=== PATIENT | female | born 1955 | race Caucasian/White ===

== ENCOUNTER 2017-05-11 09:11 | Outpatient (CLI) | payer BC | END 2017-05-11 09:12 | disposition home or self-care (01) | LOC: BICMAMMO 09:11 | PROVIDERS: ATTEND Obstetrics & Gynecology | DX: Z12.31 Encounter for screening mammogram for malignant neoplasm of breast (principal) | CPT/HCPCS: 77063; 77067 ==

== ENCOUNTER 2017-09-16 14:15 | Outpatient (CLI) | payer BC | END 2017-09-16 14:16 | disposition home or self-care (01) | LOC: BICCT 14:15 | PROVIDERS: ATTEND Allergy & Immunology | DX: J32.9 Chronic sinusitis, unspecified (principal); J32.1 Chronic frontal sinusitis ==

== ENCOUNTER 2018-05-12 09:07 | Outpatient (CLI) | payer BC ==
--- NOTE | 2018-05-12 11:14 | BD ---
DEXA BONE DENSITY STUDY: Date: 05/12/18 HISTORY: Postmenopausal. FINDINGS: Lumbar Spine: BMD (g/cm2) L1 1.028 T-Score: +0.3 L2 1.094 T-Score: +0.6 L3 1.112 T-Score: +0.3 L4 1.129 T-Score: +0.6 Total 1.096 T-Score: +0.4 Left Femoral Neck: 0.764 T-Score: -0.8 Total Femur: 0.862 T-Score: -0.7 IMPRESSION: Normal bone mineral density of the lumbar spine and left femoral neck. POS: TPC
--- NOTE | 2018-05-12 11:57 | MMO ---
Bilateral MAMMO Bilat Screen DDI+TAMIKA. CLINICAL HISTORY: Patient is 62 years old and is seen for screening. The patient has no family history of breast cancer. The patient has no personal history of cancer. VIEWS: The views performed were: bilateral craniocaudal with tomosynthesis and bilateral mediolateral oblique with tomosynthesis. FILMS COMPARED: The present examination has been compared to prior imaging studies performed at [facility] on 04/29/2014, 05/01/2015, 05/06/2016 and 05/11/2017, and at [facility] on 01/21/2011, 04/20/2012 and 04/26/2013. MAMMOGRAM FINDINGS: There are scattered fibroglandular densities. There are no suspicious masses, suspicious calcifications, or new areas of architectural distortion. IMPRESSION: THERE IS NO MAMMOGRAPHIC EVIDENCE OF MALIGNANCY. A ROUTINE FOLLOW-UP MAMMOGRAM IN 1 YEAR IS RECOMMENDED. THE RESULTS OF THIS EXAM WERE SENT TO THE PATIENT. ACR BI-RADS Category 1 - Negative MAMMOGRAPHY NOTE: 1. A negative mammogram report should not delay a biopsy if a dominant of clinically suspicious mass is present. 2. Approximately 10% to 15% of breast cancers are not detected by mammography. 3. Adenosis and dense breasts may obscure an underlying neoplasm.
== END 2018-05-12 09:08 | disposition home or self-care (01) ==
LOC: BICMAMMO 09:07
PROVIDERS: ATTEND Obstetrics & Gynecology
DX: Z12.31 Encounter for screening mammogram for malignant neoplasm of breast (principal); Z13.820 Encounter for screening for osteoporosis
CPT/HCPCS: 77063; 77067; 77080

== ENCOUNTER 2018-06-01 00:04 | Outpatient (CLI) | payer BC ==
[2018-06-01 09:59] LABS: Bilirubin Negative (Negative); Blood, Urine Negative (Negative); Clarity CLEAR (Clear); Glucose, Urine (Dipstick) Negative (Negative); Leukocyte Negative (Negative); Nitrite Negative (Negative); Protein, Urine (Dipstick) Negative (Neg-Trace); Specific Gravity, Urine 1.022 (1.002-1.036); Urobilinogen 0.2 mg/dL (0.2-1.0)
[2018-06-01 10:02] LABS: Bacteria/HPF None Seen HPF (None Seen); Hyaline Casts/LPF 4-6 HYALINE CAST LPF (0-3 Hyaline); Pathc Cast-AUWi Flag 0.67 (0-2.49); Squamous Epithelial 0-3 HPF (0-3); WBC/HPF 0-3 HPF (0-3)
[2018-06-01 10:03] LABS: INR-International Normal Ratio 0.9; Prothrombin Time 12.6 SEC (12.0-14.7)
[2018-06-01 10:09] LABS: Hemoglobin 12.1 g/dL (12.0-16.0); Mean Corpuscular HGB CONC 32.9 g/dL (32.0-36.0); Mean Corpuscular Hemoglobin 31.1 pg (27.0-31.0); Mean Corpuscular Volume 94.5 fL (78.0-98.0); Mean Platelet Volume 6.5 fL (7.4-10.4); Platelet Count 348 thou/uL (130-400); RBC Distribution Width 11.2 % (11.5-14.5); White Blood Cell (WBC) Count 6.4 thou/uL (4.8-10.8)
[2018-06-01 10:14] LABS: Anion Gap 9 mmol/L (10-20); BUN (Urea Nitrogen) 10 mg/dL (9.8-20.1); Calc. Creatinine Clearance 0 mL/min (70-130); Calcium 9.8 mg/dL (7.8-10.44); Carbon Dioxide 29 mmol/L (23-31); Chloride 103 mmol/L (98-107); Estimated GFR-MDRD 75; Glucose 82 mg/dL (80-115); Potassium 4.1 mmol/L (3.5-5.1); Sodium 137 mmol/L (136-145)
== END 2018-06-01 00:05 | disposition home or self-care (01) ==
LOC: LABBT 00:04
PROVIDERS: ATTEND Orthopaedic Surgery
DX: Z01.818 Encounter for other preprocedural examination (principal); M17.12 Unilateral primary osteoarthritis, left knee
CPT/HCPCS: 80048; 81001; 85027; 85610; 87081; 93005; 93010

== ENCOUNTER 2018-06-01 08:45 | Inpatient (IN) | payer BC ==
[2018-06-01 08:40] VITALS: BMI 25.0
[2018-06-12] MEDS ORDERED: Tranexamic Acid 1,000 MG/10 ML VIAL ONE ×2 (06:27→09:45)
[2018-06-12] MEDS ORDERED: Sodium Chloride 0.9% 100 ML ONE (06:27)
[2018-06-12] MEDS ORDERED: Lidocaine 1% (PF) 30 ML VIAL ONE (06:29)
[2018-06-12] MEDS ORDERED: Fentanyl 100 MCG/2 ML VIAL ONE ×2 (06:29→07:13)
[2018-06-12] MEDS ORDERED: Midazolam HCl 2 mg/2 ml Vial ONE (06:29)
[2018-06-12] MEDS ORDERED: Bupivacaine PF 0.5% 30 ML VIAL ONE (06:38)
[2018-06-12] MEDS ORDERED: Scopolamine 1.5 mg/72 hour Patch ONE (06:54)
[2018-06-12] MEDS ORDERED: Zolpidem Tartrate 5 MG TAB PO PRN ×2 (07:11→07:27)
[2018-06-12] MEDS ORDERED: HYDROcodone/Acetaminophen 10/325 mg Tablet PO PRN (07:11)
[2018-06-12] MEDS ORDERED: Ropivacaine HCl/PF 250 ML in Premix Bag 1 BAG NERVE BLCK SCH (07:11)
[2018-06-12] MEDS ORDERED: traMADol HCl 50 MG TAB PO PRN ×2 (07:11)
[2018-06-12] MEDS ORDERED: Fentanyl 100 MCG/2 ML VIAL IV PRN (07:11)
[2018-06-12] MEDS ORDERED: Promethazine HCl 25 MG/ML VIAL IM PRN ×2 (07:11→07:27)
[2018-06-12] MEDS ORDERED: Ondansetron PF 4 MG/2 ML Vial IVP PRN ×2 (07:11→07:27)
[2018-06-12] MEDS ORDERED: diphenhydrAMINE 25 MG CAP PO PRN (07:27)
[2018-06-12] MEDS ORDERED: Acetaminophen 325 MG TAB PO PRN (07:27)
[2018-06-12] MEDS ORDERED: Vancomycin HCl 1 GM in Premix Bag 1 BAG IVPB SCH (07:30)
[2018-06-12] MEDS ORDERED: Tranexamic Acid 1,000 MG in Sodium Chloride 0.9% 100 ML IVPB SCH (07:30)
[2018-06-12] MEDS ORDERED: Clindamycin/D5W 600 mg/50 ml Premix Bag ONE (07:43)
[2018-06-12] MEDS ORDERED: Non-Formulary Item 1 EACH (Multivitamin [Multi-Vitamin Daily] 1 TAB) PO SCH (09:00)
[2018-06-12] MEDS ORDERED: Meperidine HCl/PF 25 MG/ML VIAL ONE (09:27)
[2018-06-12] MEDS ORDERED: Promethazine HCl 25 MG/ML VIAL ONE (09:59)
[2018-06-12] MEDS: Fluticasone Propionate Nasal Spray 16 gm Bottle NASAL SCH (10:05)
[2018-06-12] MEDS: Aspirin 81 mg Enteric Coated Tablet PO SCH ×2 (10:05→22:40)
[2018-06-12] MEDS: Sodium Chloride 0.9% 1,000 ML IV SCH ×2 (10:05→15:23)
--- NOTE | 2018-06-12 10:24 | OP ---
DATE OF PROCEDURE: 06/12/2018 PREOPERATIVE DIAGNOSES: Left knee osteoarthritis with valgus deformity. POSTOPERATIVE DIAGNOSES: Left knee osteoarthritis with valgus deformity. PROCEDURE PERFORMED: Left total knee replacement using Jelena pin-less navigation. HEALTH SPECIALIST: Isauro Arceo PA-C. BLOOD LOSS: Minimal. COMPLICATIONS: None. ANESTHESIA: She did have a general anesthetic as well as preoperative block. IMPLANTS: Left knee size 4 left cruciate retaining femur. We used a size 3 primary tibial base plate. We used a 3 x 9 mm CS X3 tibial poly and then an asymmetric 29 x 9 X3 patella. DISPOSITION: She went to recovery in stable condition. INDICATIONS: This is a 62-year-old female who presents with left knee arthritis and valgus knee deformity. At this time, she has failed nonoperative treatment and wished to have her knee replaced. DESCRIPTION OF PROCEDURE: After all appropriate consent forms were explained and signed, she was taken to the operative room and at this time was given general anesthetic. Once the level of anesthesia was appropriate, tourniquet was placed on the left thigh and leg was then prepped and draped in standard surgical fashion. Preoperatively, the patient appeared to have near full extension, a lot of pseudolaxity to varus and valgus. At this time, the limb was exsanguinated and tourniquet was taken to 250 mmHg. Midline incision made with 10 blade down through skin. Bovie was used to coagulate any brisk venous bleeding. New blade was used to make a medial parapatellar arthrotomy. With the knee in full extension, we started to peel off her medial periosteal sleeve and patella spontaneously dislocated, which arose suspicion to maltracking and also with a known history of patella kimber. At this time, we removed excess fat pad and everted the patella. We did a lateral release just off the bone of the lateral facet of the patella as the fact that she dislocated spontaneously arose our suspicion that there would be some significant problems with patellar tracking. At this time, the knee was flexed up. We then navigated out the distal femur and cut our femur with the setting of cutting of 9 off the medial femoral condyle and 2 off the lateral femoral condyle. Once this was cut, we did not feel this was enough and so we took the guide down 2 mm and made another cut. Once this was done, we then set our sizing jig on the knee at 3 degrees on the left side. This was pinned in place putting even a little bit more external rotation so that our patella tracked well. At this time, we sized this to be a 4, was going to be a little bit big [id number], but even with 6 degrees of flexion on the navigation, the patient had no significant step-off on her femur and we did not want to take an anterior notch of the femoral cortex. The 4-in-1 cutting block was applied, pinned and cuts were made. At this time, loose osteophytes were removed with a rongeur and we then went ahead to preparing our tibia. PCL retractor was placed posteriorly and Hohmann was placed laterally. We then pinned our navigation on to the tibia. We then navigated our proximal tibia. We then cut with 4 degrees of posterior slope and there being 2 in 2 cut from the medial and lateral tibial plateaus. Once this had been cut, again we decided that this was not enough and so we took 2 more. At this time, we removed the medial and lateral meniscus tissue as well as cut off posterior osteophytes with the curved osteotome posteriorly from both sides. We then applied our tibia. The size 4 was too big and would overhang, therefore we went to a size 3 and using a long alignment anat, achieved our correct rotation pin in place. A 3 x 9 mm poly was trialed. This gave us excellent stability in flexion. Fantastic patellar tracking and was a little tight in full extension. Therefore, IT band had multiple slits made in it horizontally to release the IT band and allow us go in full extension. Once this was done, 2 towel clips were used and the patella was cut. We then trialed a 29 x 9 patella and this had excellent in our trochlear groove with nice tracking. We then removed our patella, flexed our knee up, drilled our lug knots and punched our tibia. All trial components were removed and the knee was thoroughly irrigated and dried. The PCL was recessed a little bit around the tibial insertion and the cement was mixed on the back table. We then applied our components, removing excess bone cement on the knee on full extension until the cement dried. At this time, we placed multiple interrupted #2 Vicryl sutures followed by running StrataFix and then we used a running 2-0 Stratafix and a 3-0 Stratafix to close remaining skin. Surgicel skin glue was used on top. Once this had dried, bulky sterile dressing was applied on to the left leg. Tourniquet was let down. Toes pinked up nicely. The patient was then awakened, taken to recovery room in stable condition. All counts were correct at the end of the case. She did receive preoperative IV antibiotics. Job ID: [id number]
[2018-06-12] MEDS: Rosuvastatin 5 MG TAB PO SCH (11:03)
[2018-06-12] MEDS: Ubidecarenone 50 MG CAP PO SCH (11:03)
[2018-06-12] MEDS: Ketorolac Tromethamine 30 MG/ML VIAL IVP SCH ×2 (12:22→18:12)
[2018-06-12] MEDS ORDERED: hydrALAZINE 20 MG/ML VIAL SLOW IVP PRN (14:54)
--- NOTE | 2018-06-12 15:22 | CON ---
DATE OF CONSULTATION: 06/12/2018 PRIMARY CARE PROVIDER: Dr. Epifanio Farfan. CHIEF COMPLAINT: Management of medical comorbidities. HISTORY OF PRESENT ILLNESS: Ms. Morgan is a pleasant 62-year-old lady, who was seen at [facility] for management of medical comorbidities on June 12, 2018. She underwent left total knee replacement today. She denies any chest pain or shortness of breath. She denies any fevers or chills. She denies any nausea or vomiting. She reports that pain is manageable. REVIEW OF SYSTEMS: All other systems reviewed and found to be negative. PAST MEDICAL HISTORY: Dyslipidemia, gastroesophageal reflux disease, spinal stenosis. PAST SURGICAL HISTORY: Hysterectomy, left maxillary sinus surgery, and surgery for deviated nasal septum. FAMILY HISTORY: No family history of coronary artery disease. SOCIAL HISTORY: No history of tobacco use, alcohol use, or recreational drug use. ALLERGIES: IBUPROFEN, NAPROXEN, PENICILLIN, STATINS, SULFAMETHOXAZOLE, AND TRIMETHOPRIM. CURRENT MEDICATIONS: 1. Tylenol Extra Strength p.r.n. 2. Calcium citrate/vitamin D3 two tablets daily. 3. Nexium 40 mg at bedtime. 4. Flonase 15.8 mL nasal spray daily. 5. Meloxicam 15 mg daily. 6. Multivitamins one tablet daily. 7. Crestor 5 mg daily. 8. Coenzyme Q10 100 mg daily. PHYSICAL EXAMINATION: GENERAL: On examination, Ms. Morgan is awake and alert, not in acute distress. VITAL SIGNS: Blood pressure is 166/76, pulse 76, respiratory rate 18, and oxygen saturations 98% on room air. She is afebrile. EYES: No scleral icterus, no conjunctival pallor. ENT: Moist mucosal membranes. No oropharyngeal erythema or exudates. NECK: Supple, nontender, trachea is midline. RESPIRATORY: Accessory muscles of breathing are not active. Chest wall movements are symmetric bilaterally. Lungs are clear to auscultation without wheeze, rhonchi, or crepitations. CARDIOVASCULAR: S1 and S2 are heard, regular. Peripheral pulses palpable. No carotid bruit, no pericardial rub. ABDOMEN: Soft, nontender, bowel sounds heard. NEUROLOGIC: Cranial nerves 2 through 12 are intact. MUSCULOSKELETAL: Status post left knee surgery. SKIN: No rashes or subcutaneous nodules. LYMPHATIC: No cervical lymphadenopathy. PSYCHIATRIC: Normal mood, normal affect, the patient is oriented to person, place, and time LABORATORY DATA: Ms. Morgan's labs and investigations were reviewed. On June 01, she had normal white count, normal hemoglobin, and normal platelet count. INR was 0.9. Chem-7 was unremarkable. Urinalysis showed 4 to 6 hyaline casts. ASSESSMENT AND PLAN: Ms. Morgan is a pleasant 62-year-old lady, who was seen at [facility] on June 12, 2018. Her problem list includes: 1. Dyslipidemia: We will continue the patient on statin, specifically Crestor, which is her home medication. 2. Gastroesophageal reflux disease: Stable, continue PPI. 3. Arthritis: Status post left total knee replacement. Deep venous thrombosis prophylaxis and pain management per Orthopedic Service. 4. We will order p.r.n. IV hydralazine for blood pressure spikes during this hospitalization. Many thanks for allowing me to participate in your patient's care. Please feel free to contact me with any questions or concerns. LEVEL OF RISK: Moderate. LEVEL OF COMPLEXITY: Moderate. Job ID: [id number]
[2018-06-12] MEDS: CEFAZOLIN 2 GM in Premix Bag 1 BAG IVPB SCH (15:37)
[2018-06-12] MEDS ORDERED: Ropivacaine 0.5% HCl/PF (150 MG/30 ML VIAL) ONE (16:20)
[2018-06-12] MEDS ORDERED: Ropivacaine 0.2% HCl/PF (40 MG/20 ML VIAL) ONE (16:20)
[2018-06-12] MEDS ORDERED: Dexamethasone 20 MG/5 ML VIAL ONE (16:43)
[2018-06-12] MEDS ORDERED: Ondansetron PF 4 MG/2 ML Vial ONE (16:43)
[2018-06-12] MEDS ORDERED: PROPOFOL 200 MG/20 ML VIAL ONE (16:43)
[2018-06-13] MEDS: CEFAZOLIN 2 GM in Premix Bag 1 BAG IVPB SCH (00:54)
[2018-06-13] MEDS: Ketorolac Tromethamine 30 MG/ML VIAL IVP SCH ×4 (00:54→18:30)
[2018-06-13 04:47] LABS: Hemoglobin 9.9 g/dL (12.0-16.0); Mean Corpuscular HGB CONC 33.6 g/dL (32.0-36.0); Mean Corpuscular Hemoglobin 31.8 pg (27.0-31.0); Mean Corpuscular Volume 94.5 fL (78.0-98.0); Mean Platelet Volume 6.3 fL (7.4-10.4); Platelet Count 261 thou/uL (130-400); RBC Distribution Width 11.2 % (11.5-14.5); White Blood Cell (WBC) Count 10.8 thou/uL (4.8-10.8)
[2018-06-13] MEDS: Sodium Chloride 0.9% 1,000 ML IV SCH ×2 (05:46→16:19)
[2018-06-13] MEDS: Ubidecarenone 50 MG CAP PO SCH (08:39)
[2018-06-13] MEDS: HYDROcodone/Acetaminophen 10/325 mg Tablet PO PRN ×4 (08:39→22:11)
[2018-06-13] MEDS: Aspirin 81 mg Enteric Coated Tablet PO SCH ×2 (08:40→22:08)
[2018-06-13] MEDS: Multivitamin W/ Minerals 1 TAB PO SCH (08:40)
[2018-06-13] MEDS: Ferrous Gluconate 324 MG TAB PO SCH ×2 (08:40→22:09)
[2018-06-13] MEDS: Senokot S 8.6-50 MG TAB PO SCH ×2 (08:41→22:10)
[2018-06-13] MEDS: Rosuvastatin 5 MG TAB PO SCH (08:42)
[2018-06-13] MEDS: Fluticasone Propionate Nasal Spray 16 gm Bottle NASAL SCH (13:27)
--- NOTE | 2018-06-13 19:08 | PDOC.PN ---
- Subjective Encounter Start Date: 06/13/18 Encounter Start Time: 19:06 Pt seen for followup re: gerd. No complaints today, feels better. - Objective MAR Reviewed: Yes Vital Signs & Weight: Vital Signs (12 hours) Temp Pulse Resp BP Pulse Ox 06/13/18 15:08 99.0 F 77 16 114/72 99 06/13/18 08:19 98.4 F 71 16 119/76 97 06/13/18 08:00 98 Weight Admit Weight 160 lb Weight 160 lb I&O: 06/12/18 06/13/18 06/14/18 06:59 06:59 06:59 Intake Total 2400 1000 Output Total 2750 Balance -350 1000 Result Diagrams: 06/13/18 04:30 Additional Labs: Labs reviewed by me Phys Exam - Physical Examination Constitutional: NAD HEENT: moist MMs Neck: supple Respiratory: clear to auscultation bilateral Cardiovascular: RRR Gastrointestinal: soft Neurological: moves all 4 limbs Psychiatric: normal affect Dx/Plan (1) GERD (gastroesophageal reflux disease) Code(s): K21.9 - GASTRO-ESOPHAGEAL REFLUX DISEASE WITHOUT ESOPHAGITIS Status: Chronic Comment: stable, continue Nexium (2) Dyslipidemia Code(s): E78.5 - HYPERLIPIDEMIA, UNSPECIFIED Status: Chronic Comment: stable , continue Crestor - Plan * . Review of Systems - Review of Systems Respiratory: negative: Cough, Shortness of Breath, SOB with Excertion, Pleuritic Pain, Wheezing Cardiovascular: negative: chest pain, palpitations, orthopnea, paroxysmal nocturnal dyspnea, edema, light headedness - Medications/Allergies Allergies/Adverse Reactions: Allergies Allergy/AdvReac Type Severity Reaction Status Date / Time ibuprofen [From Advil] Allergy Verified 06/01/18 08:45 naproxen [From Aleve] Allergy Verified 06/01/18 08:45 Penicillins Allergy oral Verified 06/01/18 08:45 ulcerations,digestive burning [id number] Reductase Allergy MUSCULAR, Verified 06/01/18 08:45 Inhibitor JOINT PAIN sulfamethoxazole Allergy LIP AND Verified 06/01/18 08:45 [From Bactrim] TONGUE SWELLING tree nut Allergy ANAPHYLAXSI Verified 06/01/18 08:45 S trimethoprim [From Bactrim] Allergy LIP AND Verified 06/01/18 08:45 TONGUE SWELLING Medications: Current Medications Acetaminophen (Tylenol) 650 mg PO Q4H PRN PRN Reason: Headache/Fever or Pain Hydrocodone Bitart/Acetaminophen ([place] 10/325) 1 tab PO Q4H PRN PRN Reason: Pain (1-3) Last Admin: 06/12/18 22:41 Dose: 1 tab Hydrocodone Bitart/Acetaminophen ([place] 10/325) 2 tab PO Q4H PRN PRN Reason: PAIN (4-6) Last Admin: 06/13/18 18:35 Dose: 2 tab Aspirin (Ecotrin) 81 mg PO BID [facility] Last Admin: 06/13/18 08:40 Dose: 81 mg Coenzyme Q10 (Coenzyme Q10) 100 mg PO DAILY [facility] Last Admin: 06/13/18 08:39 Dose: 100 mg Diphenhydramine HCl (Benadryl) 25 mg PO Q6H PRN PRN Reason: Itching Fentanyl (Sublimaze) 50 mcg IV Q1H PRN PRN Reason: BREAKTHROUGH PAIN Ferrous Gluconate (Fergon) 324 mg PO BID [facility] Last Admin: 06/13/18 08:40 Dose: 324 mg Fluticasone Propionate (Flonase Nasal [place]) 0 gm NASAL DAILY [facility] Last Admin: 06/13/18 13:27 Dose: Not Given Hydralazine HCl (Apresoline) 10 mg SLOW IVP Q6H PRN PRN Reason: SBP Greater Than 170 Ropivacaine 250 ml/ Device 250 mls @ 0 mls/hr NERVE BLCK INF [facility] Last Admin: 06/13/18 10:43 Dose: 250 mls Sodium Chloride (Normal Saline 0.9%) 1,000 mls @ 100 mls/hr IV .Q10H [facility] Last Admin: 06/13/18 16:19 Dose: Not Given Iron/Minerals/Multivitamins (Theragran M) 1 tab PO DAILY [facility] Last Admin: 06/13/18 08:40 Dose: 1 tab Ketorolac Tromethamine (Toradol) 30 mg IVP Q6HR [facility] Stop: 06/14/18 06:01 Last Admin: 06/13/18 18:30 Dose: Not Given Ondansetron HCl (Zofran) 4 mg IVP Q6H PRN PRN Reason: Nausea/Vomiting Pantoprazole Sodium (Protonix) 40 mg PO HS [facility] Last Admin: 06/12/18 22:41 Dose: 40 mg Promethazine HCl (Phenergan) 12.5 mg IM Q4H PRN PRN Reason: Nausea Promethazine HCl (Phenergan) 12.5 mg IM Q4H PRN PRN Reason: Nausea/Vomiting Rosuvastatin Calcium (Crestor) 5 mg PO QAM [facility] Last Admin: 06/13/18 08:42 Dose: 5 mg Senna/Docusate Sodium (Senokot S) 2 tab PO BID [facility] Last Admin: 06/13/18 08:41 Dose: 2 tab Sodium Chloride (Flush - Normal Saline) 10 ml IVF PRN PRN PRN Reason: Saline Flush Last Admin: 06/13/18 05:48 Dose: 10 ml Tramadol HCl (Ultram) 50 mg PO Q6H PRN PRN Reason: Mild Pain (1-3) Tramadol HCl (Ultram) 100 mg PO Q6H PRN PRN Reason: Moderate Pain 4-6 Last Admin: 06/13/18 01:03 Dose: 100 mg Zolpidem Tartrate (Ambien) 5 mg PO HSPRN PRN PRN Reason: Insomnia
[2018-06-14] MEDS: Sodium Chloride 0.9% 1,000 ML IV SCH ×2 (00:59→08:48)
[2018-06-14] MEDS: Ketorolac Tromethamine 30 MG/ML VIAL IVP SCH ×2 (01:00→06:24)
[2018-06-14 05:27] LABS: Hemoglobin 8.8 g/dL (12.0-16.0); Mean Corpuscular HGB CONC 33.3 g/dL (32.0-36.0); Mean Corpuscular Volume 96.3 fL (78.0-98.0); Mean Platelet Volume 6.6 fL (7.4-10.4); Platelet Count 236 thou/uL (130-400); RBC Distribution Width 11.1 % (11.5-14.5); Red Blood Cell (RBC) Count 2.75 mill/uL (4.20-5.40); White Blood Cell (WBC) Count 11.4 thou/uL (4.8-10.8)
[2018-06-14] MEDS: HYDROcodone/Acetaminophen 10/325 mg Tablet PO PRN (09:31)
[2018-06-14] MEDS: Senokot S 8.6-50 MG TAB PO SCH (09:32)
[2018-06-14] MEDS: Rosuvastatin 5 MG TAB PO SCH (09:32)
[2018-06-14] MEDS: Ferrous Gluconate 324 MG TAB PO SCH (09:32)
[2018-06-14] MEDS: Ubidecarenone 50 MG CAP PO SCH (09:32)
[2018-06-14] MEDS: Multivitamin W/ Minerals 1 TAB PO SCH (09:33)
[2018-06-14] MEDS: Aspirin 81 mg Enteric Coated Tablet PO SCH (09:33)
[2018-06-14 12:08] VITALS: BP 127/80; TEMP 98.5
== END 2018-06-14 14:12 | disposition home or self-care (01) | DRG 470 ==
LOC: SURG A 06-12 05:33 → SJJU 06-12 10:13
PROVIDERS: ADMIT Orthopaedic Surgery; ATTEND Orthopaedic Surgery
PROC: 0SRD0J9 Replacement of Left Knee Joint with Synthetic Substitute, Cemented, Open Approach (ICD-10-PCS; principal; 2018-06-12)
DX: M17.12 Unilateral primary osteoarthritis, left knee (principal); E78.5 Hyperlipidemia, unspecified; K21.9 Gastro-esophageal reflux disease without esophagitis; M21.062 Valgus deformity, not elsewhere classified, left knee; Z90.710 Acquired absence of both cervix and uterus; Z88.0 Allergy status to penicillin; Z88.2 Allergy status to sulfonamides; Z88.6 Allergy status to analgesic agent; Z91.018 Allergy to other foods; Z79.899 Other long term (current) drug therapy
CPT/HCPCS: 36415; 85027; 86850; 86900; 86901; C1713; C1776; J0690; J1885; J2001; J2175; J2250; J2550; J2795; J3010; J3370; J3490; S0020

== ENCOUNTER 2018-06-21 15:53 | Outpatient (CLI) | payer BC ==
--- NOTE | 2018-06-21 16:18 | ULT ---
Venous duplex sonogram left lower extremity HISTORY: Left leg pain and edema. FINDINGS: The left common femoral vein and greater saphenous junction were evaluated along with the f emoral, deep femoral, popliteal, and posterior tibial veins. There is good color and spectral Doppler flow, compression, and augmentation. IMPRESSION: No sonographic evidence of DVT within the left lower extremity.
== END 2018-06-21 15:54 | disposition home or self-care (01) ==
LOC: ULT 15:53
PROVIDERS: ATTEND Orthopaedic Surgery
DX: M79.662 Pain in left lower leg (principal); Z96.652 Presence of left artificial knee joint

== ENCOUNTER 2019-06-15 13:03 | Outpatient (CLI) | payer BC ==
--- NOTE | 2019-06-15 13:42 | MMO ---
Bilateral MAMMO Bilat Screen DDI+TAMIKA. CLINICAL HISTORY: Patient is 63 years old and is seen for screening. The patient has no family history of breast cancer. The patient has no personal history of cancer. VIEWS: The views performed were: bilateral craniocaudal with tomosynthesis and bilateral mediolateral oblique with tomosynthesis. FILMS COMPARED: The present examination has been compared to prior imaging studies performed at [facility] on 05/06/2016, 05/11/2017 and 05/12/2018. This study has been interpreted with the assistance of computer-aided detection. MAMMOGRAM FINDINGS: There are scattered fibroglandular densities. There are no suspicious masses, suspicious calcifications, or new areas of architectural distortion. IMPRESSION: THERE IS NO MAMMOGRAPHIC EVIDENCE OF MALIGNANCY. A ROUTINE FOLLOW-UP MAMMOGRAM IN 1 YEAR IS RECOMMENDED. THE RESULTS OF THIS EXAM WERE SENT TO THE PATIENT. ACR BI-RADS Category 1 - Negative MAMMOGRAPHY NOTE: 1. A negative mammogram report should not delay a biopsy if a dominant of clinically suspicious mass is present. 2. Approximately 10% to 15% of breast cancers are not detected by mammography. 3. Adenosis and dense breasts may obscure an underlying neoplasm. Reported by: CEDRIC GLASER MD Electonically Signed: [id number]
== END 2019-06-15 13:04 | disposition home or self-care (01) ==
LOC: BICMAMMO 13:03
PROVIDERS: ATTEND Obstetrics & Gynecology
DX: Z12.31 Encounter for screening mammogram for malignant neoplasm of breast (principal)
CPT/HCPCS: 77063; 77067

== ENCOUNTER 2020-01-05 08:05 | Emergency (ER) | payer BC ==
[2020-01-05] MEDS ORDERED: Acetaminophen 500 MG TAB ONE (08:34)
[2020-01-05 08:41] LABS: #Eosinphils 0.1 thou/uL (0.0-0.7); #Lymphocytes 1.4 thou/uL (1.20-3.40); #Monocytes 1.4 thou/uL (0.11-0.59); #Neutrophils 15.6 thou/uL (1.40-6.50); %Basophils 0.2 % (0.0-1.0); %Eosinophils 0.6 % (0.0-10.0); %Lymphocytes 7.7 % (21.0-51.0); %Monocytes 7.3 % (0.0-10.0); %Neutrophils 84.3 % (42.0-75.0); Hemoglobin 12.5 g/dL (12.0-16.0); Mean Corpuscular HGB CONC 35.4 g/dL (32.0-36.0); Mean Corpuscular Hemoglobin 32.9 pg (27.0-31.0); Mean Corpuscular Volume 92.9 fL (78.0-98.0); Mean Platelet Volume 5.7 fL (7.4-10.4); Platelet Count 425 thou/uL (130-400); RBC Distribution Width 10.9 % (11.5-14.5); Red Blood Cell (RBC) Count 3.79 mill/uL (4.20-5.40); White Blood Cell (WBC) Count 18.6 thou/uL (4.8-10.8)
[2020-01-05 09:01] LABS: ALT (SGPT) 24 U/L (8-55); AST (SGOT) 23 U/L (5-34); Albumin 4.6 g/dL (3.4-4.8); Alkaline Phosphatase 73 U/L (40-110); Anion Gap 13 mmol/L (10-20); BUN (Urea Nitrogen) 14 mg/dL (9.8-20.1); Bilirubin, Total 1.4 mg/dL (0.2-1.2); Calc. Creatinine Clearance 0 mL/min (70-130); Calcium 9.3 mg/dL (7.8-10.44); Carbon Dioxide 24 mmol/L (23-31); Chloride 92 mmol/L (98-107); Estimated GFR-MDRD 68; Globulin 3.4 g/dL (2.4-3.5); Glucose 109 mg/dL (80-115); Lipase 70 U/L (8-78); Potassium 4.1 mmol/L (3.5-5.1); Sodium 125 mmol/L (136-145)
--- NOTE | 2020-01-05 09:37 | CT ---
CT abdomen and pelvis with IV contrast HISTORY: Abdominal pain. Nausea and constipation. FINDINGS: The lung bases are clear. A tiny dystrophic calcification associated with the far anterior margin of the superior pole left kidney. No urinary tract calcifications are apparent. Liver and spleen have a normal appearance No free air or free fluid. Large amount of stool is present throughout the colon. Scattered diverticula arise from the colon. Ci rcumferential wall thickening involves the decompressed sigmoid colon with subtle stranding in the adjacent fat. Appendix is not inflamed. Urinary bladder is unremarkable. IMPRESSION : Severe constipation. Transition of caliber and subtle inflammatory appearance of the sigmoid colon ma y represent mild acute versus chronic diverticulitis/inflammation. Please correlate with clinical findings.
[2020-01-05 09:53] LABS: Bilirubin Negative (Negative); Blood, Urine Negative (Negative); Clarity Clear (Clear); Glucose, Urine (Dipstick) Normal (Negative); Ketone, Urine Negative (Negative); Leukocyte Negative Leu/uL (Negative); Nitrite Negative (Negative); Protein, Urine (Dipstick) Negative (Neg-Trace); Specific Gravity, Urine 1.016 (1.002-1.036); Urobilinogen Normal mg/dL (Less than 2); pH, Urine 7.5 (5.0-9.0)
[2020-01-05] MEDS ORDERED: Metoclopramide HCl 10 MG/2 ML VIAL ONE (10:12)
[2020-01-05] MEDS ORDERED: Iopamidol-370 76% 500 ML 1 ML ONE (15:30)
== END 2020-01-05 11:09 | disposition home or self-care (01) ==
LOC: ERS 08:05
DX: K57.30 Diverticulosis of large intestine without perforation or abscess without bleeding (principal); K59.00 Constipation, unspecified; I10 Essential (primary) hypertension; E78.00 Pure hypercholesterolemia, unspecified; K21.9 Gastro-esophageal reflux disease without esophagitis; M19.90 Unspecified osteoarthritis, unspecified site; Z79.899 Other long term (current) drug therapy
CPT/HCPCS: 74177; 80053; 81003; 83690; 85025; J2765

== ENCOUNTER 2020-01-05 19:59 | Inpatient (IN) | payer BC ==
[2020-01-05] MEDS ORDERED: Metoclopramide HCl 10 MG/2 ML VIAL ONE (20:16)
[2020-01-05 20:44] LABS: #Eosinphils 0.1 thou/uL (0.0-0.7); #Lymphocytes 1.8 thou/uL (1.20-3.40); #Monocytes 1.5 thou/uL (0.11-0.59); #Neutrophils 16.2 thou/uL (1.40-6.50); %Basophils 0.2 % (0.0-1.0); %Eosinophils 0.6 % (0.0-10.0); %Lymphocytes 9.2 % (21.0-51.0); %Monocytes 7.4 % (0.0-10.0); %Neutrophils 82.6 % (42.0-75.0); Hemoglobin 11.9 g/dL (12.0-16.0); Mean Corpuscular HGB CONC 34.7 g/dL (32.0-36.0); Mean Corpuscular Hemoglobin 32.3 pg (27.0-31.0); Mean Platelet Volume 5.9 fL (7.4-10.4); Platelet Count 423 thou/uL (130-400); Red Blood Cell (RBC) Count 3.68 mill/uL (4.20-5.40); White Blood Cell (WBC) Count 19.6 thou/uL (4.8-10.8)
[2020-01-05] MEDS ORDERED: Lorazepam 1 MG TAB ONE (21:04)
[2020-01-05 21:18] LABS: Bilirubin Negative (Negative); Blood, Urine Negative (Negative); Clarity Clear (Clear); Glucose, Urine (Dipstick) Normal (Negative); Ketone, Urine Negative (Negative); Leukocyte Negative Leu/uL (Negative); Nitrite Negative (Negative); Protein, Urine (Dipstick) Negative (Neg-Trace); Specific Gravity, Urine 1.015 (1.002-1.036); Urobilinogen Normal mg/dL (Less than 2); pH, Urine 7.5 (5.0-9.0)
[2020-01-05 22:00] LABS: ALT (SGPT) 23 U/L (8-55); AST (SGOT) 39 U/L (5-34); Albumin 4.7 g/dL (3.4-4.8); Alkaline Phosphatase 78 U/L (40-110); Anion Gap 17 mmol/L (10-20); BUN (Urea Nitrogen) 9 mg/dL (9.8-20.1); Bilirubin, Total 1.5 mg/dL (0.2-1.2); Calc. Creatinine Clearance 0 mL/min (70-130); Calcium 8.9 mg/dL (7.8-10.44); Carbon Dioxide 22 mmol/L (23-31); Chloride 89 mmol/L (98-107); Estimated GFR-MDRD 73; Globulin 3.8 g/dL (2.4-3.5); Glucose 113 mg/dL (80-115); Lipase 47 U/L (8-78); Protein, Total 8.5 g/dL (6.0-8.3); Sodium 123 mmol/L (136-145)
[2020-01-05] MEDS ORDERED: Ondansetron ODT 4 MG TAB SL PRN (23:45)
[2020-01-05] MEDS ORDERED: Ondansetron PF 4 MG/2 ML Vial IVP PRN (23:45)
[2020-01-05] MEDS ORDERED: HYDROcodone/Acetaminophen 5/325 mg Tablet PO PRN ×2 (23:45)
[2020-01-05] MEDS ORDERED: Acetaminophen 325 MG TAB PO PRN (23:45)
[2020-01-05] MEDS ORDERED: Sodium Chloride 0.9% 1,000 ML IV SCH (23:45)
[2020-01-06 00:07] VITALS: BMI 27.6
[2020-01-06] MEDS ORDERED: Ondansetron PF 4 MG/2 ML Vial IVP PRN (01:56)
[2020-01-06] MEDS ORDERED: Ondansetron ODT 4 MG TAB PO PRN (01:56)
--- NOTE | 2020-01-06 02:10 | PDOC.HHP ---
Hospitalist HPI - History of Present Illness abdominal pain History of Present Illness: Case of an 64y/o female with pmhx of gerd and htn who comes to hospital due to abdominal pain, nause and vomiting. Patient states she was on her usual state of health until like 5 days ago when she started with the pain nausea and vomiting, she states her last bowel movement was 7 days ago. she states abd pain nause and vomiting has been progressively getting worse, she has been unable to tolerate anything po for the last 4 days this is her third visit to this emergency department for the same complaint. She had a CT scan this morning which was consistent with severe constipation and inflammation / diverticulitis, she was discharge with po abx and stool softners. She has tried suppositories milk of magnesia and manual disimpaction at home without success. she denies fever chills or malaise does Hospitalist ROS - Review of Systems All other systems reviewed; all pertinent +/- noted in HPI/Subj - Medication Medications: Active Medications Generic Name Dose Route Start Last Admin Trade Name Freq PRN Reason Stop Dose Admin Sodium Chloride 1,000 mls @ 110 mls/hr 01/05/20 23:45 01/06/20 00:23 Normal Saline 0.9% IV 01/06/20 09:16 1,000 mls .[id number] AMADOU Administration Hospitalist History - Past Surgical History Past Surgical History: reports: Hysterectomy, Total Knee Replacement, Tonsillectomy - Family History Family History: reports: hypertension - Social History Smoking Status: Never smoker Alcohol: reports: None Drugs: reports: none Living Situation: With Family - Exam General Appearance: NAD, awake alert Eye: PERRL, anicteric sclera ENT: normocephalic atraumatic, no oropharyngeal lesions, dry oral mucosa Neck: supple, symmetric, no JVD, no thyromegaly Heart: RRR, no murmur, no gallops, no rubs Respiratory: CTAB, no wheezes, no rales, no ronchi Gastrointestinal: soft, non-distended, normal bowel sounds, no palpable masses, tender to palpation Extremities: no cyanosis, no clubbing, no edema Skin: normal turgor, no lesions, no rashes Neurological: cranial nerve grossly intact, normal sensation to touch, no weakness Musculoskeletal: normal tone, normal strength, no muscle wasting Psychiatric: normal affect, normal behavior, A&O x 3 Hospitalist Results - Labs Result Diagrams: 01/05/20 20:20 01/05/20 20:20 Lab results: WBC 19.6 thou/uL (4.8-10.8) H 01/05/20 20:20 Hgb 11.9 g/dL (12.0-16.0) L 01/05/20 20:20 Hct 34.2 % (36.0-47.0) L 01/05/20 20:20 MCV 93.0 fL (78.0-98.0) 01/05/20 20:20 Plt Count 423 thou/uL (130-400) H 01/05/20 20:20 Neutrophils % 82.6 % (42.0-75.0) H 01/05/20 20:20 Sodium 123 mmol/L (136-145) L 01/05/20 20:20 Potassium 5.0 mmol/L (3.5-5.1) 01/05/20 20:20 Chloride 89 mmol/L (98-107) L 01/05/20 20:20 Carbon Dioxide 22 mmol/L (23-31) L 01/05/20 20:20 BUN 9 mg/dL (9.8-20.1) L 01/05/20 20:20 Creatinine 0.79 mg/dL (0.6-1.1) 01/05/20 20:20 Glucose 113 mg/dL (80-115) 01/05/20 20:20 Lactic Acid 0.7 mmol/L (0.5-2.2) 01/05/20 21:06 Calcium 8.9 mg/dL (7.8-10.44) 01/05/20 20:20 Total Bilirubin 1.5 mg/dL (0.2-1.2) H 01/05/20 20:20 AST 39 U/L (5-34) H 01/05/20 20:20 ALT 23 U/L (8-55) 01/05/20 20:20 Alkaline Phosphatase 78 U/L (40-110) 01/05/20 20:20 Serum Total Protein 8.5 g/dL (6.0-8.3) H 01/05/20 20:20 Albumin 4.7 g/dL (3.4-4.8) 01/05/20 20:20 Lipase 47 U/L (8-78) 01/05/20 20:20 Urine Ketones Negative mg/dL (Negative) 01/05/20 20:50 Urine Blood Negative (Negative) 01/05/20 20:50 Urine Nitrite Negative (Negative) 01/05/20 20:50 Ur Leukocyte Esterase Negative Cyndie/uL (Negative) 01/05/20 20:50 Hospitalist H&P A/P - Problem (1) Diverticulitis Code(s): K57.92 - DVTRCLI OF INTEST, PART UNSP, W/O PERF OR ABSCESS W/O BLEED Status: Acute (2) Intractable abdominal pain Code(s): R10.9 - UNSPECIFIED ABDOMINAL PAIN Status: Acute (3) Nausea & vomiting Code(s): R11.2 - NAUSEA WITH VOMITING, UNSPECIFIED Status: Acute (4) Hyponatremia Code(s): E87.1 - HYPO-OSMOLALITY AND HYPONATREMIA Status: Acute (5) Dyslipidemia Code(s): E78.5 - HYPERLIPIDEMIA, UNSPECIFIED Status: Chronic (6) GERD (gastroesophageal reflux disease) Code(s): K21.9 - GASTRO-ESOPHAGEAL REFLUX DISEASE WITHOUT ESOPHAGITIS Status: Chronic (7) Constipation Code(s): K59.00 - CONSTIPATION, UNSPECIFIED Status: Acute - Plan Plan: 64y/o female with the stated pmhx who presents w abdominal pain n&V abdominal pain - diverticulitis vs severe consitipation - pain management diverticulitis - ct suspecious for inflmmation vs diverticululitis - lekukocytosis 19k - started on cippro + flagyl - f/u blood cultures severe consitpation - ivfs - miralax - fleet enema - reglan n+V pnr symptomatic tx hyponatremia - likely hypoosmolar hypovolemic due to poor oral intak - will hydrate w NS
[2020-01-06] MEDS ORDERED: Sodium Chloride 0.9% 1,000 ML IV SCH (02:30)
[2020-01-06] MEDS ORDERED: Fleet Enema 133 ML BOT FS SCH (05:15)
[2020-01-06] MEDS ORDERED: Metoclopramide HCl 10 MG/2 ML VIAL IVP PRN (05:46)
[2020-01-06] MEDS: metroNIDAZOLE 500 MG in Premix Bag 1 BAG IVPB SCH ×3 (05:54→21:46)
[2020-01-06 07:08] LABS: SARS-CoV-2 MS2 Positive; SARS-CoV-2 N Gene Negative; SARS-CoV-2 S Gene Negative; SARS-CoV-2 by NAA Not Detected (NotDetected); SARS-CoV-2 orf1ab Negative
[2020-01-06 07:51] LABS: Anion Gap 12 mmol/L (10-20); BUN (Urea Nitrogen) 5 mg/dL (9.8-20.1); Calc. Creatinine Clearance 107 mL/min (70-130); Calcium 8.3 mg/dL (7.8-10.44); Carbon Dioxide 23 mmol/L (23-31); Chloride 99 mmol/L (98-107); Estimated GFR-MDRD 89; Glucose 126 mg/dL (80-115); Potassium 3.8 mmol/L (3.5-5.1); Sodium 130 mmol/L (136-145)
[2020-01-06 08:04] LABS: ALT (SGPT) 15 U/L (8-55); AST (SGOT) 17 U/L (5-34); Albumin 3.7 g/dL (3.4-4.8); Alkaline Phosphatase 56 U/L (40-110); Anion Gap 12 mmol/L (10-20); BUN (Urea Nitrogen) 5 mg/dL (9.8-20.1); Bilirubin, Total 1.2 mg/dL (0.2-1.2); Calc. Creatinine Clearance 105 mL/min (70-130); Calcium 8.1 mg/dL (7.8-10.44); Carbon Dioxide 22 mmol/L (23-31); Chloride 100 mmol/L (98-107); Estimated GFR-MDRD 87; Globulin 2.6 g/dL (2.4-3.5); Glucose 131 mg/dL (80-115); Magnesium 2.3 mg/dL (1.6-2.6); Potassium 3.8 mmol/L (3.5-5.1); Protein, Total 6.3 g/dL (6.0-8.3); Sodium 130 mmol/L (136-145)
[2020-01-06 08:18] LABS: Band 2 % (5-11); Eosinophils 2 % (0-10); Hemoglobin 10.1 g/dL (12.0-16.0); Lymphocytes 13 % (21-51); MDiff Complete? YES; Mean Corpuscular HGB CONC 34.4 g/dL (32.0-36.0); Mean Corpuscular Hemoglobin 32.3 pg (27.0-31.0); Mean Corpuscular Volume 93.9 fL (78.0-98.0); Mean Platelet Volume 5.6 fL (7.4-10.4); Monocytes 2 % (0-10); Neutrophil 81 % (42-75); Platelet Count 348 thou/uL (130-400); Red Blood Cell (RBC) Count 3.14 mill/uL (4.20-5.40); White Blood Cell (WBC) Count 12.6 thou/uL (4.8-10.8)
[2020-01-06] MEDS: Enoxaparin Sodium 40 MG/0.4 ML SYRINGE SC SCH (08:51)
[2020-01-06] MEDS ORDERED: Polyethylene Glycol 3350 17 GM Packet PO SCH (09:00)
[2020-01-06] MEDS ORDERED: Famotidine 20 MG TAB PO SCH (09:00)
--- NOTE | 2020-01-06 09:18 | PDOC.HOSPP ---
- Subjective Encounter Date: 01/06/20 (fu abdominal pain) Encounter Time: 09:17 Subjective: Pt reports feeling better this morning - less cramping, a few bm's. no current nausea. she states her a week ago from a heart attack. She's been having significant problems with nausea, vomiting, constipation since then. She tried multiple remedies at home without relief. She states the enema here helped. - Objective Vital Signs & Weight: Vital Signs (12 hours) Temp Pulse Resp BP Pulse Ox 01/06/20 07:23 98.3 F 75 20 134/88 93 L 01/06/20 03:27 98.2 F 93 18 147/86 H 95 01/05/20 23:00 98.8 F 95 18 145/72 H 95 01/05/20 22:50 95 Weight Weight 176 lb 3.2 oz I&O: 01/05/20 01/06/20 01/07/20 06:59 06:59 06:59 Intake Total 700 Balance 700 Result Diagrams: 01/06/20 07:19 01/06/20 07:19 Hospitalist ROS - Medication Medications: Active Medications Generic Name Dose Route Start Last Admin Trade Name Freq PRN Reason Stop Dose Admin Enoxaparin Sodium 40 mg 01/06/20 09:00 01/06/20 08:51 Enoxaparin Sodium 40 Mg/0.4 Ml Syringe SC 40 mg 0900 AMADOU Administration Famotidine 20 mg 01/06/20 09:00 01/06/20 08:49 Famotidine 20 Mg Tab PO 20 mg BID AMADOU Administration Metronidazole 500 mg/ Device 100 mls @ 100 mls/hr 01/06/20 06:00 01/06/20 05:54 IVPB 100 mls Q8HR AMADOU Administration Ciprofloxacin/Dextrose 400 mg/ 200 mls @ 200 mls/hr 01/06/20 05:00 01/06/20 05:50 Device IVPB 200 mls 0500,1700 AMADOU Administration Metoclopramide HCl 10 mg 01/06/20 05:46 01/06/20 08:54 Metoclopramide Hcl 10 Mg/2 Ml Vial IVP 10 mg Q6H PRN Administration Nausea/Vomiting Polyethylene Glycol 17 gm 01/06/20 09:00 01/06/20 08:50 Polyethylene Glycol 3350 17 Gm Packet PO 17 gm DAILY AMADOU Administration - Exam General Appearance: NAD Heart: RRR, no murmur Respiratory: CTAB, no wheezes, no rales, no ronchi Gastrointestinal: soft, non-tender, non-distended, normal bowel sounds Extremities: no cyanosis, no clubbing, no edema Psychiatric: normal affect Hosp A/P (1) Hyponatremia Code(s): E87.1 - HYPO-OSMOLALITY AND HYPONATREMIA Status: Acute (2) Constipation Code(s): K59.00 - CONSTIPATION, UNSPECIFIED Status: Acute (3) Diverticulitis Code(s): K57.92 - DVTRCLI OF INTEST, PART UNSP, W/O PERF OR ABSCESS W/O BLEED Status: Acute (4) Intractable abdominal pain Code(s): R10.9 - UNSPECIFIED ABDOMINAL PAIN Status: Acute (5) Nausea & vomiting Code(s): R11.2 - NAUSEA WITH VOMITING, UNSPECIFIED Status: Acute (6) Hypertension Code(s): I10 - ESSENTIAL (PRIMARY) HYPERTENSION Status: Chronic Qualifiers: Hypertension type: essential hypertension Qualified Code(s): I10 - Esse ntial (primary) hypertension (7) Dyslipidemia Code(s): E78.5 - HYPERLIPIDEMIA, UNSPECIFIED Status: Chronic (8) GERD (gastroesophageal reflux disease) Code(s): K21.9 - GASTRO-ESOPHAGEAL REFLUX DISEASE WITHOUT ESOPHAGITIS Status: Chronic - Plan N/V/abd pain/constipation - improved - hold additional bowel meds at this time -anticipate that pt will continue to have bm's today Possible diverticulitis - continue cipro/flagyl and monitor pain Hyponatremia c/w hypovolemic - 123 -> 130 by correcting volume deficiency - d/c IVF - change diet to full liquids. Advised patient to have less water and more juice/broth/electrolyte containing fluids - advance diet as tolerated Hypertension - bp's controlled, hold home meds dvt prophy - lovenox gi prophy - on nexium at home - will continue here code status full reviewed plan of care with patient/family, no questions or further needs at end of eval.
[2020-01-06 12:00] LABS: Anion Gap 12 mmol/L (10-20); BUN (Urea Nitrogen) 5 mg/dL (9.8-20.1); Calc. Creatinine Clearance 116 mL/min (70-130); Calcium 8.4 mg/dL (7.8-10.44); Carbon Dioxide 22 mmol/L (23-31); Chloride 101 mmol/L (98-107); Estimated GFR-MDRD Greater than 90; Glucose 98 mg/dL (80-115); Potassium 4.2 mmol/L (3.5-5.1); Sodium 131 mmol/L (136-145)
[2020-01-06 15:15] LABS: Anion Gap 10 mmol/L (10-20); BUN (Urea Nitrogen) 6 mg/dL (9.8-20.1); Calc. Creatinine Clearance 110 mL/min (70-130); Calcium 8.2 mg/dL (7.8-10.44); Carbon Dioxide 23 mmol/L (23-31); Chloride 99 mmol/L (98-107); Estimated GFR-MDRD Greater than 90; Glucose 93 mg/dL (80-115); Potassium 4.3 mmol/L (3.5-5.1); Sodium 128 mmol/L (136-145)
[2020-01-06] MEDS ORDERED: Rosuvastatin 5 MG TAB PO SCH (21:00)
[2020-01-07 06:21] LABS: #Basophils 0.1 thou/uL (0.0-0.2); #Eosinphils 0.2 thou/uL (0.0-0.7); #Lymphocytes 1.6 thou/uL (1.20-3.40); #Monocytes 0.6 thou/uL (0.11-0.59); #Neutrophils 4.7 thou/uL (1.40-6.50); %Lymphocytes 21.7 % (21.0-51.0); %Monocytes 8.2 % (0.0-10.0); %Neutrophils 66.1 % (42.0-75.0); Mean Corpuscular HGB CONC 34.6 g/dL (32.0-36.0); Mean Corpuscular Hemoglobin 32.6 pg (27.0-31.0); Mean Corpuscular Volume 94.4 fL (78.0-98.0); Mean Platelet Volume 5.9 fL (7.4-10.4); Platelet Count 352 thou/uL (130-400); RBC Distribution Width 11.1 % (11.5-14.5); Red Blood Cell (RBC) Count 3.05 mill/uL (4.20-5.40); White Blood Cell (WBC) Count 7.2 thou/uL (4.8-10.8)
[2020-01-07] MEDS: metroNIDAZOLE 500 MG in Premix Bag 1 BAG IVPB SCH (06:27)
[2020-01-07 06:40] LABS: Anion Gap 10 mmol/L (10-20); BUN (Urea Nitrogen) 6 mg/dL (9.8-20.1); Calc. Creatinine Clearance 104 mL/min (70-130); Calcium 8.7 mg/dL (7.8-10.44); Carbon Dioxide 25 mmol/L (23-31); Chloride 103 mmol/L (98-107); Estimated GFR-MDRD 86; Glucose 109 mg/dL (80-115); Potassium 4.3 mmol/L (3.5-5.1); Sodium 134 mmol/L (136-145)
[2020-01-07] MEDS: Enoxaparin Sodium 40 MG/0.4 ML SYRINGE SC SCH (08:20)
[2020-01-07] MEDS ORDERED: Acetaminophen 325 MG/10.15 ML UDCUP PO PRN (10:23)
[2020-01-07] MEDS ORDERED: Acetaminophen 325 MG TAB PO PRN (10:37)
[2020-01-07 13:47] VITALS: BP 136/79; TEMP 98.9
--- NOTE | 2020-01-07 14:05 | DIS ---
DATE OF ADMISSION: 01/05/2020 DATE OF DISCHARGE: 01/07/2020 MEDICATIONS: Reconciled at discharge. New medications - will complete a total of 5 days of antibiotics; 1. Ciprofloxacin 500 mg b.i.d. dispense five tablets start tonight. 2. Flagyl 500 mg t.i.d., dispense eight tablets starting this afternoon. Medications to continue; 1. Tylenol 500 mg one as needed. 2. Calcium citrate four tablets daily. 3. Esomeprazole 40 mg at bedtime. 4. Estradiol patches one weekly. 5. Flonase 1 spray each nostril daily. 6. Meloxicam 50 mg daily. 7. Citrucel 2 tablespoons daily. 8. Multivitamin daily. 9. Rosuvastatin 5 mg daily. 10. Retin-A cream at night. 11. Coenzyme Q10 of 100 mg daily. Medications changed; 1. Losartan/hydrochlorothiazide 100/12.5 changed to one-half tablet daily. To follow up with Dr. Farfan on when to resume a full dose. FINAL DIAGNOSES: 1. Diverticulitis. 2. Severe constipation. 3. Hypovolemic hyponatremia, improved. SECONDARY DIAGNOSES: 1. Hypertension. 2. Dyslipidemia. 3. Gastroesophageal reflux disease. 4. Grief with regard to recent loss of the patient's . FOLLOWUP: Follow up is with Dr. Farfan within a week for re-evaluation in general, recheck a basic metabolic panel to include the sodium level and determine when to resume the full tablet of losartan/hydrochlorothiazide. HISTORY OF PRESENT ILLNESS: Ms. Morgan is a 64-year-old female with history of hypertension and GERD, who for a week, had ongoing nausea, vomiting, abdominal pain, and constipation. She tried multiple medications at home without any relief. She presented to the emergency room and was found to have severe constipation, inflammation consistent with diverticulitis, and was admitted to the hospital. HOSPITAL COURSE: 1. The patient was started on medications for her bowels, to include an enema, which resulted in multiple soft bowel movements. She was treated with Cipro and Flagyl IV, and her white blood cell count has normalized since. The nausea, vomiting, and abdominal pain have all resolved. She is tolerating a regular diet and does meet criteria for discharge to home. 2. Hyponatremia. This was consistent with hypovolemic hyponatremia. The patient received IV fluids on admission, which were stopped when her sodium had corrected to 130. She was able to take liquids and her diet was advanced. Followup sodium level is 134 today and the IV fluids were stopped approximately over 24 hours ago. The patient is on losartan/hydrochlorothiazide at home. Her blood pressures have been normal here, slightly elevated today. I am going to have her go down to one- half a tablet of losartan/hydrochlorothiazide daily and follow up with Dr. Farfan. She will also need a followup check of her metabolic panel and her sodium level, as well as monitoring of her blood pressures. 3. Hypertension. Medications were not needed during this hospitalization. Her blood pressure prior to discharge was slightly elevated. Will have her start her home medication tomorrow at 1/2 tablet daily. As HCTZ can contribute to hyponatremia - discharging on a very low dose (as she is on a combination medicine with losartan) and pt advised to have labs completed in a week with Dr Farfan. The patient overall feeling improved. We will discharge and have her complete a few additional days of antibiotics to complete five days total for the diverticulitis. As she is tolerating a regular diet, there are no dietary restrictions. The symptoms are consistent with constipation creating the inflammation. PHYSICAL EXAMINATION: VITAL SIGNS: On day of discharge; blood pressure 145/79, temperature 97.7, pulse 67, respirations 18, and saturation 97% on room air. GENERAL: Awake, alert, and responsive, not in apparent distress. Able to speak in full sentences. LUNGS: Clear to auscultation bilateral. No audible wheezing, rhonchi, or rales. HEART: Normal S1 and S2. Regular rate and rhythm. No significant murmurs. ABDOMEN: Soft with present bowel sounds. Nontender and nondistended. EXTREMITIES: No edema. LABORATORY DATA: Today renal panel 134, 4.3, 103, 25, 6, 0.69, and 109. Yesterday, sodium level was 128 at 1445 hours, 131 at 1130 hours, and 130 at 0719 hours. On admission- 04 January, BMP 123, 5.0, 89, 22, 9, 0.79, and 113. LFTs: T-bilirubin 1.2, AST 17, ALT 15, alkaline phosphatase 56, total protein 6.3, and albumin 3.7. Urinalysis negative. COVID negative. CT abdomen and pelvis on January 04, severe constipation, inflammatory appearance of the sigmoid colon, which may be acute versus chronic diverticulitis. DIET: Regular. ACTIVITY: As tolerated. DISCHARGE DISPOSITION: Home. Reviewed with the patient and her daughter this hospitalization, the importance of followup and the seek care precautions. They demonstrated understanding. TIME SPENT: Total time coordinating discharge is 30 minutes. Job ID: [id number] MTDD
== END 2020-01-07 14:04 | disposition home or self-care (01) | DRG 392 ==
LOC: ERS 19:59 → T4-B 21:27
PROVIDERS: ADMIT Internal Medicine; ATTEND Family Medicine
DX: K57.32 Diverticulitis of large intestine without perforation or abscess without bleeding (principal); E87.1 Hypo-osmolality and hyponatremia; K59.00 Constipation, unspecified; I10 Essential (primary) hypertension; E78.5 Hyperlipidemia, unspecified; K21.9 Gastro-esophageal reflux disease without esophagitis; Z20.828 Contact with and (suspected) exposure to other viral communicable diseases; F43.21 Adjustment disorder with depressed mood; Z96.659 Presence of unspecified artificial knee joint; E78.00 Pure hypercholesterolemia, unspecified; M19.90 Unspecified osteoarthritis, unspecified site; Z90.710 Acquired absence of both cervix and uterus; Z79.899 Other long term (current) drug therapy; Z79.1 Long term (current) use of non-steroidal anti-inflammatories (NSAID); K57.90 Diverticulosis of intestine, part unspecified, without perforation or abscess without bleeding
CPT/HCPCS: 36415; 74177; 80048; 80053; 81003; 83605; 83690; 83735; 85007; 85025; 85027; 87040; 87635; 96374; J0744; J1650; J2765; Q9967; U0003

== ENCOUNTER 2020-07-16 09:45 | Outpatient (CLI) | payer MEDICARE | END 2020-07-16 09:46 | disposition home or self-care (01) | LOC: BICMAMMO 09:45 | PROVIDERS: ATTEND Obstetrics & Gynecology | DX: Z12.31 Encounter for screening mammogram for malignant neoplasm of breast (principal) | CPT/HCPCS: 77063; 77067 ==

== ENCOUNTER 2021-01-07 09:53 | Outpatient (CLI) | payer MEDICARE | END 2021-01-07 09:54 | disposition home or self-care (01) | LOC: LABBT 09:53 | PROVIDERS: ATTEND Orthopaedic Surgery | DX: Z01.818 Encounter for other preprocedural examination (principal); M17.11 Unilateral primary osteoarthritis, right knee | CPT/HCPCS: 71046 ==

== ENCOUNTER 2021-01-12 05:30 | Inpatient (IN) | payer MEDICARE ==
[2021-01-06 12:07] VITALS: BMI 25.8
[2021-01-07 11:35] LABS: #Basophils 0.1 10x3/uL (0.0-0.2); #Eosinphils 0.3 10x3/uL (0.0-0.5); #Monocytes 0.7 10x3/uL (0.0-1.1); %Basophils 0.9 % (0.0-2.0); %Eosinophils 3.5 % (0.0-6.0); %Lymphocytes 19.4 % (18.0-47.0); %Monocytes 9.6 % (0.0-10.0); %Neutrophils 66.2 % (40.0-75.0); Hemoglobin 11.3 g/dL (12.0-15.5); Mean Corpuscular HGB CONC 34.5 g/dL (32.0-36.0); Mean Corpuscular Hemoglobin 31.9 pg (27.0-33.0); Mean Corpuscular Volume 92.7 fl (81.6-98.3); Mean Platelet Volume 8.5 fl (7.4-10.4); Platelet Count 412 10x3/uL (150-450); RBC Distribution Width 12.2 % (11.5-14.5); Red Blood Cell (RBC) Count 3.54 10x6/uL (3.90-5.03); White Blood Cell (WBC) Count 7.6 10x3/uL (3.5-10.5)
[2021-01-07 11:37] LABS: INR-International Normal Ratio 0.9; Prothrombin Time 10.3 sec (9.5-12.1)
[2021-01-07 11:42] LABS: Anion Gap 13 mmol/L (10-20); BUN (Urea Nitrogen) 17 mg/dL (9.8-20.1); Calc. Creatinine Clearance 0 mL/min (70-130); Calcium 9.5 mg/dL (7.8-10.44); Carbon Dioxide 25 mmol/L (23-31); Chloride 98 mmol/L (98-107); Glucose 87 mg/dL (80-115); Potassium 5.1 mmol/L (3.5-5.1); Sodium 131 mmol/L (136-145)
[2021-01-07 11:43] LABS: Bilirubin Neg (Negative); Blood, Urine Negative (Negative); Clarity Clear (Clear); Glucose, Urine (Dipstick) Normal (Negative); Ketone, Urine Negative (Negative); Leukocyte 25 (Negative); Nitrite Negative (Negative); Protein, Urine (Dipstick) Negative (Neg-Trace); Specific Gravity, Urine 1.005 (1.002-1.036); Urobilinogen Normal mg/dL (Less than 2)
[2021-01-07 17:23] LABS: SARS-CoV-2 PCR by NAA Not Detected (NotDetected)
[2021-01-12] MEDS ORDERED: Fentanyl 100 MCG/2 ML VIAL ONE ×3 (05:51→09:46)
[2021-01-12] MEDS ORDERED: Scopolamine 1.5 mg/72 hour Patch ONE (06:04)
[2021-01-12] MEDS ORDERED: Ondansetron PF 4 MG/2 ML Vial ONE ×4 (06:05→06:15)
[2021-01-12] MEDS ORDERED: PROPOFOL 200 MG/20 ML VIAL ONE (06:15)
[2021-01-12] MEDS ORDERED: Bupivacaine HCl 0.5%/Epinephrine 1:200,000/PF 30 ml Vial ONE (06:15)
[2021-01-12] MEDS ORDERED: Ketorolac Tromethamine 30 MG/ML VIAL ONE (06:15)
[2021-01-12] MEDS ORDERED: Lidocaine 1% PF 5 ML VIAL ONE (06:15)
[2021-01-12] MEDS ORDERED: Metoclopramide HCl 10 MG/2 ML VIAL ONE (06:15)
[2021-01-12] MEDS ORDERED: PHENYLEPHRINE-NS 100 MCG/ML 10 ML SYRINGE ONE (06:15)
[2021-01-12] MEDS ORDERED: Dexamethasone 20 MG/5 ML VIAL ONE (06:15)
[2021-01-12] MEDS ORDERED: Bupivacaine PF 0.5% 30 ML VIAL ONE (06:28)
[2021-01-12] MEDS ORDERED: Midazolam HCl 2 mg/2 ml Vial ONE (06:30)
[2021-01-12] MEDS ORDERED: Tranexamic Acid 1,000 MG/10 ML VIAL ONE ×2 (06:36→10:13)
[2021-01-12] MEDS ORDERED: Vancomycin 1 GM/200 ML BAG ONE (06:36)
[2021-01-12] MEDS ORDERED: Sodium Chloride 0.9% 100 ML ONE (06:37)
[2021-01-12] MEDS ORDERED: Clindamycin/D5W 900 mg/50 ml Premix Bag ONE (07:02)
[2021-01-12] MEDS ORDERED: Acetaminophen 325 MG TAB PO PRN (07:13)
[2021-01-12] MEDS ORDERED: Acetaminophen/Codeine 30-300mg Tablet PO PRN (07:13)
[2021-01-12] MEDS ORDERED: Fentanyl 100 MCG/2 ML VIAL SLOW IVP PRN ×2 (07:13→08:02)
[2021-01-12] MEDS ORDERED: traMADol HCl 50 MG TAB PO PRN ×2 (07:13→08:00)
[2021-01-12] MEDS ORDERED: Promethazine HCl 25 MG/ML VIAL IM PRN ×3 (07:13→08:00)
[2021-01-12] MEDS ORDERED: Ondansetron PF 4 MG/2 ML Vial IVP PRN ×2 (07:13→08:00)
[2021-01-12] MEDS ORDERED: Zolpidem Tartrate 5 MG TAB PO PRN ×2 (07:13→08:00)
[2021-01-12] MEDS ORDERED: diphenhydrAMINE 25 MG CAP PO PRN (07:13)
[2021-01-12] MEDS ORDERED: Tranexamic Acid 1,000 MG in Sodium Chloride 0.9% 100 ML IVPB SCH (07:15)
[2021-01-12] MEDS ORDERED: Promethazine HCl 25 MG/ML VIAL IVPB PRN (07:55)
[2021-01-12] MEDS ORDERED: Ropivacaine 0.2% 550 ML 550 ML NERVE BLCK SCH (08:00)
[2021-01-12] MEDS ORDERED: HYDROcodone/Acetaminophen 10/325 mg Tablet PO PRN ×2 (08:00)
[2021-01-12] MEDS ORDERED: [UNRECOGNIZED DRUG - OTHER] PO SCH (09:00)
[2021-01-12] MEDS ORDERED: Non-Formulary Item 1 EACH (Losartan/Hydrochlorothiazide [Losartan-Hctz 100-12.5 Mg Tab] 1 PO SCH (09:00)
[2021-01-12] MEDS ORDERED: Non-Formulary Item 1 EACH (Multivitamin [Multi-Vitamin Daily] 1 TABLET Tablet) PO SCH (09:00)
[2021-01-12] MEDS ORDERED: FLUTICASONE FUROATE EA NARE SCH (09:00)
[2021-01-12] MEDS ORDERED: METHYLCELLULOSE PO SCH (09:00)
[2021-01-12] MEDS: Sodium Chloride 0.9% 1,000 ML IV SCH ×2 (11:29→17:19)
[2021-01-12] MEDS: Aspirin 81 mg Enteric Coated Tablet PO SCH ×2 (11:30→20:21)
[2021-01-12] MEDS: Meloxicam 15 MG TAB PO SCH (11:30)
[2021-01-12] MEDS ORDERED: Ketorolac Tromethamine 30 MG/ML VIAL IVP SCH ×2 (12:00)
[2021-01-12] MEDS: Clindamycin/D5W 900 MG in Premix Bag 1 BAG IVPB SCH ×2 (13:10→20:21)
[2021-01-12] MEDS: Hydrochlorothiazide 25 MG TAB PO SCH (14:26)
[2021-01-12] MEDS: Losartan 25 MG TAB PO SCH (14:26)
[2021-01-12] MEDS: traMADol HCl 50 MG TAB PO PRN ×2 (17:18→23:22)
[2021-01-12] MEDS ORDERED: Vancomycin 1 GM in Premix Bag 1 BAG IVPB SCH (18:30)
[2021-01-12] MEDS: Rosuvastatin 5 MG TAB PO SCH (20:21)
[2021-01-12] MEDS ORDERED: TRETINOIN 0.05% TOP SCH (21:00)
[2021-01-13] MEDS: Sodium Chloride 0.9% 1,000 ML IV SCH ×3 (02:46→23:11)
[2021-01-13] MEDS: traMADol HCl 50 MG TAB PO PRN ×3 (05:56→21:27)
[2021-01-13 06:13] LABS: Hemoglobin 9.1 g/dL (12.0-16.0); Mean Corpuscular HGB CONC 34.6 g/dL (32.0-36.0); Mean Corpuscular Hemoglobin 33.4 pg (27.0-31.0); Mean Corpuscular Volume 96.5 fL (78.0-98.0); Mean Platelet Volume 5.8 fL (7.4-10.4); Platelet Count 330 thou/uL (130-400); RBC Distribution Width 10.9 % (11.5-14.5); Red Blood Cell (RBC) Count 2.73 mill/uL (4.20-5.40); White Blood Cell (WBC) Count 11.4 thou/uL (4.8-10.8)
[2021-01-13 09:08] LABS: Anion Gap 8 mmol/L (10-20); BUN (Urea Nitrogen) 10 mg/dL (9.8-20.1); Calc. Creatinine Clearance 88 mL/min (70-130); Calcium 8.8 mg/dL (7.8-10.44); Carbon Dioxide 26 mmol/L (23-31); Chloride 97 mmol/L (98-107); Glucose 74 mg/dL (80-115); Potassium 3.4 mmol/L (3.5-5.1); Sodium 128 mmol/L (136-145)
[2021-01-13] MEDS: Acetaminophen/Codeine 30-300mg Tablet PO PRN ×2 (09:38→17:18)
[2021-01-13] MEDS: Senokot S 8.6-50 MG TAB PO SCH ×2 (09:39→21:22)
[2021-01-13] MEDS: Multivitamin W/ Minerals 1 TAB PO SCH (09:39)
[2021-01-13] MEDS: Ferrous Gluconate 324 MG TAB PO SCH ×2 (09:39→21:23)
[2021-01-13] MEDS: Aspirin 81 mg Enteric Coated Tablet PO SCH ×2 (09:40→21:22)
[2021-01-13] MEDS: Meloxicam 15 MG TAB PO SCH (09:40)
[2021-01-13] MEDS: Hydrochlorothiazide 25 MG TAB PO SCH (14:12)
[2021-01-13] MEDS: Losartan 25 MG TAB PO SCH (14:12)
[2021-01-13] MEDS: Rosuvastatin 5 MG TAB PO SCH (21:23)
[2021-01-14 06:15] LABS: Hemoglobin 8.8 g/dL (12.0-16.0); Mean Corpuscular HGB CONC 34.2 g/dL (32.0-36.0); Mean Corpuscular Hemoglobin 33.4 pg (27.0-31.0); Mean Corpuscular Volume 97.5 fL (78.0-98.0); Platelet Count 316 thou/uL (130-400); RBC Distribution Width 11.1 % (11.5-14.5); Red Blood Cell (RBC) Count 2.63 mill/uL (4.20-5.40); White Blood Cell (WBC) Count 11.2 thou/uL (4.8-10.8)
[2021-01-14] MEDS: Ferrous Gluconate 324 MG TAB PO SCH (08:01)
[2021-01-14] MEDS: Meloxicam 15 MG TAB PO SCH (08:01)
[2021-01-14] MEDS: Multivitamin W/ Minerals 1 TAB PO SCH (08:02)
[2021-01-14] MEDS: Senokot S 8.6-50 MG TAB PO SCH (08:02)
[2021-01-14] MEDS: traMADol HCl 50 MG TAB PO PRN (08:02)
[2021-01-14] MEDS: Aspirin 81 mg Enteric Coated Tablet PO SCH (08:02)
[2021-01-14] MEDS: Hydrochlorothiazide 25 MG TAB PO SCH (08:04)
[2021-01-14] MEDS: Losartan 25 MG TAB PO SCH (08:04)
[2021-01-14] MEDS: Sodium Chloride 0.9% 1,000 ML IV SCH (08:25)
[2021-01-14 11:52] VITALS: BP 120/71; TEMP 98.9
[2021-01-14] MEDS ORDERED: Potassium Chloride 20 MEQ TAB PO SCH ×2 (12:15→14:30)
[2021-01-14] MEDS: Acetaminophen/Codeine 30-300mg Tablet PO PRN (12:44)
== END 2021-01-14 14:18 | disposition home or self-care (01) | DRG 470 ==
LOC: SDC 05:30 → SJJU 07:14
PROVIDERS: ADMIT Orthopaedic Surgery; ATTEND Orthopaedic Surgery
PROC: 0SRC0J9 Replacement of Right Knee Joint with Synthetic Substitute, Cemented, Open Approach (ICD-10-PCS; principal; 2021-01-12)
DX: M17.11 Unilateral primary osteoarthritis, right knee (principal); E87.1 Hypo-osmolality and hyponatremia; Z20.822 Contact with and (suspected) exposure to COVID-19; M25.761 Osteophyte, right knee; I10 Essential (primary) hypertension; E78.5 Hyperlipidemia, unspecified; J30.2 Other seasonal allergic rhinitis; D64.9 Anemia, unspecified; K21.9 Gastro-esophageal reflux disease without esophagitis; E87.6 Hypokalemia; Z90.710 Acquired absence of both cervix and uterus; Z79.899 Other long term (current) drug therapy; Z88.5 Allergy status to narcotic agent
CPT/HCPCS: 36415; 80048; 81003; 85025; 85027; 85610; 86850; 86900; 86901; 87081; A4306; C1713; C1776; J1100; J1885; J2250; J2405; J2550; J2704; J2765; J2795; J3010; J3370; J3490; J7050; S0020; U0003; U0005

== ENCOUNTER 2021-02-26 16:48 | Outpatient (CLI) | payer MEDICARE | END 2021-02-26 16:49 | disposition home or self-care (01) | LOC: ULT 16:48 | PROVIDERS: ATTEND Orthopaedic Surgery | DX: M25.461 Effusion, right knee (principal); M25.561 Pain in right knee; Z96.651 Presence of right artificial knee joint ==

== ENCOUNTER 2021-07-20 13:22 | Outpatient (CLI) | payer MEDICARE | END 2021-07-20 13:23 | disposition home or self-care (01) | LOC: BICMAMMO 13:22 | PROVIDERS: ATTEND Obstetrics & Gynecology | DX: Z12.31 Encounter for screening mammogram for malignant neoplasm of breast (principal) | CPT/HCPCS: 77063; 77067 ==

== ENCOUNTER 2021-08-12 02:29 | Emergency (ER) | payer MEDICARE ==
[2021-08-12] MEDS ORDERED: Ondansetron PF 4 MG/2 ML Vial ONE (03:14)
[2021-08-12 03:20] LABS: Bilirubin Negative (Negative); Blood, Urine Negative (Negative); Clarity Clear (Clear); Glucose, Urine (Dipstick) Normal (Negative); Ketone, Urine Negative (Negative); Leukocyte Negative Leu/uL (Negative); Nitrite Negative (Negative); Protein, Urine (Dipstick) Negative (Neg-Trace); Specific Gravity, Urine 1.005 (1.002-1.036); Urobilinogen Normal mg/dL (Less than 2)
[2021-08-12 03:36] LABS: #Eosinphils 0.5 thou/uL (0.0-0.7); #Lymphocytes 1.3 thou/uL (1.20-3.40); #Monocytes 0.7 thou/uL (0.11-0.59); #Neutrophils 7.3 thou/uL (1.40-6.50); %Basophils 0.5 % (0.0-1.0); %Lymphocytes 12.9 % (21.0-51.0); %Monocytes 6.7 % (0.0-10.0); %Neutrophils 74.9 % (42.0-75.0); Hemoglobin 11.6 g/dL (12.0-16.0); Mean Corpuscular HGB CONC 34.1 g/dL (32.0-36.0); Mean Corpuscular Hemoglobin 32.6 pg (27.0-31.0); Mean Corpuscular Volume 95.5 fL (78.0-98.0); Mean Platelet Volume 5.5 fL (7.4-10.4); Platelet Count 402 thou/uL (130-400); Red Blood Cell (RBC) Count 3.55 mill/uL (4.20-5.40); White Blood Cell (WBC) Count 9.8 thou/uL (4.8-10.8)
[2021-08-12 04:01] LABS: ALT (SGPT) 21 U/L (8-55); AST (SGOT) 20 U/L (5-34); Albumin 4.5 g/dL (3.4-4.8); Alkaline Phosphatase 75 U/L (40-110); Anion Gap 15 mmol/L (10-20); BUN (Urea Nitrogen) 7 mg/dL (9.8-20.1); Bilirubin, Total 1.3 mg/dL (0.2-1.2); Calc. Creatinine Clearance 0 mL/min (70-130); Calcium 10.1 mg/dL (7.8-10.44); Carbon Dioxide 22 mmol/L (23-31); Chloride 94 mmol/L (98-107); Estimated GFR 92; Globulin 3.2 g/dL (2.4-3.5); Glucose 110 mg/dL (80-115); Lipase 28 U/L (8-78); Potassium 3.7 mmol/L (3.5-5.1); Protein, Total 7.7 g/dL (5.8-8.1); Sodium 127 mmol/L (136-145)
[2021-08-12] MEDS ORDERED: Metoclopramide HCl 10 MG/2 ML VIAL ONE (04:24)
[2021-08-12] MEDS ORDERED: Iopamidol-370 76% 500 ML 1 ML ONE (11:03)
== END 2021-08-12 06:01 | disposition home or self-care (01) ==
LOC: ERS 02:29
DX: R10.32 Left lower quadrant pain (principal); R11.2 Nausea with vomiting, unspecified; I10 Essential (primary) hypertension; E78.5 Hyperlipidemia, unspecified; K21.9 Gastro-esophageal reflux disease without esophagitis; M19.90 Unspecified osteoarthritis, unspecified site; Z87.19 Personal history of other diseases of the digestive system
CPT/HCPCS: 74177; 80053; 81003; 83690; 85025; 87086; 93005; 96365; J2405; J2765; Q9967

== ENCOUNTER 2022-02-01 08:47 | Outpatient (CLI) | payer MEDICARE | END 2022-02-01 08:48 | disposition home or self-care (01) | LOC: TBSIIMAG 08:47 | PROVIDERS: ATTEND Neurological Surgery | DX: M47.896 Other spondylosis, lumbar region (principal); M43.16 Spondylolisthesis, lumbar region | CPT/HCPCS: 72100 ==

== ENCOUNTER 2022-03-25 13:27 | Outpatient (CLI) | payer MEDICARE | END 2022-03-25 13:28 | disposition home or self-care (01) | LOC: TBSIIMAG 13:27 | PROVIDERS: ATTEND Neurological Surgery | DX: M48.062 Spinal stenosis, lumbar region with neurogenic claudication (principal); M51.86 Other intervertebral disc disorders, lumbar region | CPT/HCPCS: 72100 ==

== ENCOUNTER 2022-06-24 13:14 | Outpatient (CLI) | payer MEDICARE | END 2022-06-24 13:15 | disposition home or self-care (01) | LOC: TBSIIMAG 13:14 | PROVIDERS: ATTEND Neurological Surgery | DX: M43.16 Spondylolisthesis, lumbar region (principal) | CPT/HCPCS: 72100 ==

== ENCOUNTER 2022-08-05 09:16 | Outpatient (CLI) | payer MEDICARE | END 2022-08-05 09:17 | disposition home or self-care (01) | LOC: BICMAMMO 09:16 | PROVIDERS: ATTEND Obstetrics & Gynecology | DX: Z12.31 Encounter for screening mammogram for malignant neoplasm of breast (principal) | CPT/HCPCS: 77063; 77067 ==

== ENCOUNTER 2023-08-03 10:05 | Outpatient (CLI) | payer MEDICARE ==
[2023-08-03 11:57] LABS: Hematocrit 34.6 % (34.9-44.5); Mean Corpuscular HGB CONC 34.7 g/dL (32.0-36.0); Mean Corpuscular Hemoglobin 32.3 pg (27.0-33.0); Mean Corpuscular Volume 93.3 fL (81.6-98.3); Mean Platelet Volume 9.2 fL (7.4-10.4); Platelet Count 338 10x3/uL (150-450); RBC Distribution Width 12.1 % (11.5-14.5); Red Blood Cell (RBC) Count 3.71 10x6/uL (3.90-5.03)
[2023-08-03 12:22] LABS: Anion Gap 13 mmol/L (10-20); BUN (Urea Nitrogen) 6 mg/dL (9.8-20.1); Calc. Creatinine Clearance 0 mL/min (70-130); Calcium 9.5 mg/dL (7.8-10.44); Carbon Dioxide 25 mmol/L (23-31); Chloride 105 mmol/L (98-107); Estimated GFR 93; Glucose 81 mg/dL (80-115); Potassium 4.3 mmol/L (3.5-5.1); Sodium 139 mmol/L (136-145)
== END 2023-08-03 10:06 | disposition home or self-care (01) ==
LOC: LABBT 10:05
PROVIDERS: ATTEND Neurological Surgery
DX: Z01.818 Encounter for other preprocedural examination (principal); M54.16 Radiculopathy, lumbar region
CPT/HCPCS: 80048; 85027; 93005; 93010

== ENCOUNTER 2023-08-08 06:03 | Observation (INO) | payer MEDICARE ==
[2023-08-03 10:34] VITALS: BMI 25.8
[2023-08-08] MEDS ORDERED: Vancomycin 1 GM VIAL ONE (06:25)
[2023-08-08] MEDS ORDERED: LevoFLOXacin D5W 500 mg (100 mL) BAG ONE (06:35)
[2023-08-08] MEDS ORDERED: Clindamycin/D5W 900 mg/50 ml Premix Bag ONE (06:36)
[2023-08-08] MEDS ORDERED: Fentanyl 250 MCG/5 ML VIAL ONE (06:49)
[2023-08-08] MEDS ORDERED: PROPOFOL 20 ML ONE (06:49)
[2023-08-08] MEDS ORDERED: Lidocaine 1% PF 5 ML VIAL ONE (06:49)
[2023-08-08] MEDS ORDERED: Rocuronium Bromide 10 MG/ML (10ML VIAL) ONE (06:49)
[2023-08-08] MEDS ORDERED: Famotidine/PF 20 mg/2ml Vial ONE (07:03)
[2023-08-08] MEDS ORDERED: Midazolam HCl 2 mg/2 ml Vial ONE (07:14)
[2023-08-08] MEDS ORDERED: Promethazine HCl 25 MG/ML VIAL ONE (07:21)
[2023-08-08] MEDS ORDERED: Cyclobenzaprine 10 MG TAB PO PRN (07:22)
[2023-08-08] MEDS ORDERED: Mag-Al 1200 mg/1200 mg/30 ML UDCUP PO PRN (07:22)
[2023-08-08] MEDS ORDERED: Acetaminophen 325 MG TAB PO PRN (07:22)
[2023-08-08] MEDS ORDERED: diphenhydrAMINE 50 MG/ML VIAL IVP PRN (07:22)
[2023-08-08] MEDS ORDERED: Milk Of Magnesia 30 ML UDCUP PO PRN (07:22)
[2023-08-08] MEDS ORDERED: Morphine 2 MG/ML VIAL SLOW IVP PRN (07:22)
[2023-08-08] MEDS ORDERED: Ondansetron PF 4 MG/2 ML Vial IVP PRN (07:22)
[2023-08-08] MEDS ORDERED: ePHEDrine Sulfate 50 MG/10 ML VIAL ONE (08:19)
[2023-08-08] MEDS ORDERED: SUGAMMADEX SODIUM 200 MG/2 ML VIAL ONE (08:34)
[2023-08-08] MEDS ORDERED: Promethazine HCl 25 MG/ML VIAL IM PRN (08:36)
[2023-08-08] MEDS ORDERED: Ondansetron HCl/PF 4 MG/2 ML Vial IVP PRN (08:36)
[2023-08-08] MEDS ORDERED: fentaNYL 50 mcg/mL 1 mL Vial ONE ×2 (09:47→10:05)
[2023-08-08] MEDS ORDERED: HYDROmorphone 0.5 MG/0.5 ML SYRINGE ONE (10:20)
[2023-08-08] MEDS: Sodium Chloride 0.9% 1,000 ML IV SCH (11:10)
[2023-08-08] MEDS: Pantoprazole DR 40 MG TAB PO SCH (11:11)
[2023-08-08] MEDS: hydrALAZINE 25 MG TAB PO SCH (11:11)
[2023-08-08] MEDS: traMADol HCl 50 MG TAB PO PRN ×2 (12:11→20:28)
[2023-08-08] MEDS: Clindamycin/D5W 900 MG in Premix 1 BAG IVPB SCH (14:38)
[2023-08-09 09:20] VITALS: BP 129/76; TEMP 98.8
== END 2023-08-09 11:16 | disposition home or self-care (01) ==
LOC: SDC 06:03 → SURG A 07:22
PROVIDERS: ADMIT Neurological Surgery; ATTEND Neurological Surgery
PROC: 0SG00K1 Fusion of Lumbar Vertebral Joint with Nonautologous Tissue Substitute, Posterior Approach, Posterior Column, Open Approach (ICD-10-PCS; principal; 2023-08-08)
DX: M48.061 Spinal stenosis, lumbar region without neurogenic claudication (principal); M54.16 Radiculopathy, lumbar region; I10 Essential (primary) hypertension; E78.5 Hyperlipidemia, unspecified; K21.9 Gastro-esophageal reflux disease without esophagitis; Z79.899 Other long term (current) drug therapy
CPT/HCPCS: 20930; 20936; 22633; 22840; 22853; 63052; 97116; C1713 ×3; C1889 ×2; J1170; J1956; J2250; J2550; J2704; J3010 ×2; J3370; J3490; J7050; S0028

== ENCOUNTER 2024-10-23 09:45 | Outpatient (CLI) | payer MEDICARE | END 2024-10-23 09:46 | disposition home or self-care (01) | LOC: BICMAMMO 09:45 | PROVIDERS: ATTEND Obstetrics & Gynecology | DX: Z12.31 Encounter for screening mammogram for malignant neoplasm of breast (principal) | CPT/HCPCS: 77063; 77067 ==